=== PATIENT | female | born 1985 | race Caucasian/White ===

== ENCOUNTER 2022-04-28 10:08 | Emergency (ER) | payer MEDICAID ==
[~2022-04-28] VITALS: Ht 165.1 cm; Wt 163.0 kg
[2022-04-28 10:32] VITALS: BP 174/111
[2022-04-28] MEDS: ACETAMINOPHEN 325MG TABLET PO ONE (12:02)
[2022-04-28] MEDS: METOCLOPRAMIDE HCL 10MG TABLET PO ONE (12:20)
[2022-04-28] MEDS ORDERED: ACET-2708 MT (14:14)
[2022-04-28] MEDS ORDERED: METO-293 MT (14:14)
== END 2022-04-28 14:39 | disposition home or self-care (01) ==
LOC: ER 10:08
DX: S50.12XA Contusion of left forearm, initial encounter (principal); R51.9 Headache, unspecified; R73.03 Prediabetes; R03.0 Elevated blood-pressure reading, without diagnosis of hypertension; Z98.51 Tubal ligation status; V43.52XA Car driver injured in collision with other type car in traffic accident, initial encounter; Y93.89 Activity, other specified; Y92.488 Other paved roadways as the place of occurrence of the external cause
CPT/HCPCS: 70450; 73030; 73090; 81025; 99284; J8597; A4565